=== PATIENT | male | born 1995 | race Caucasian/White ===

== ENCOUNTER → 2020-03-24 | Outpatient (CLI) | payer SELFPAY | END | disposition home or self-care (01) | LOC: LAB 08:42 | PROVIDERS: ATTEND Nurse Practitioner Family | DX: Z11.9 Encounter for screening for infectious and parasitic diseases, unspecified (principal); Z20.9 Contact with and (suspected) exposure to unspecified communicable disease | CPT/HCPCS: 36415; 86706; 86735; 86762; 86765; 86787 ==